=== PATIENT | male | born 1985 | race Hispanic/Latino ===

== ENCOUNTER 2024-06-06 06:49 | Emergency (ER) | payer BC ==
[~2024-06-06] VITALS: Ht 182.9 cm; Wt 113.4 kg
[2024-06-06 06:52] VITALS: BP 164/88; PULSE 82; RESP 16
== END 2024-06-06 07:40 | disposition left against medical advice (07) ==
LOC: EDH 06:49
DX: R05.9 Cough, unspecified (principal); Z53.21 Procedure and treatment not carried out due to patient leaving prior to being seen by health care provider

== ENCOUNTER 2025-03-23 14:53 | Emergency (ER) | payer SELFPAY ==
[~2025-03-23] VITALS: Ht 182.9 cm; Wt 117.9 kg
--- NOTE | 2025-03-23 16:08 | ERN ---
General Chief Complaint: Cough Stated Complaint: COUGH, CONGESTION X 3 MONTHS Time Seen by MD: 15:01 Source: patient History of Present Illness Initial Comments PATIENT IS A 39-YEAR-OLD MALE COMING IN COMPLAINING OF COUGH AND CONGESTION FOR SEVERAL MONTHS. 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 HE STATES THAT HE HAS BEEN EVALUATED MULTIPLE TIMES AND HAS BEEN FOUND TO HAVE MULTIPLE "LUNG INFECTIONS". HE ALSO STATES THAT HE HAS BEEN PLACED ON ANTIBIOTICS ON THREE SEPARATE OCCASIONS FOR THE SAME REASON. STATES THAT INITIALLY WITH THE ANTIBIOTICS HE DOES FEEL SOME RELIEF BUT THEN STARTED TO HAVE THE EPISODES OF COUGH AND SHORTNESS OF BREATH. HE STATES THAT HE WAS PLACED ON MEDICATION FOR ASTHMA WELL. HE ATTRIBUTES SOME OF THESE FINDINGS TO HIS ENVIRONMENT AND STATES THAT AT TIMES HE DOES FEEL BETTER AWAY FROM HIS HOUSE. Allergies: Coded Allergies: No Known Allergies (Unverified Allergy, Unknown, 06/06/24) Past Medical History Past Medical History: Hypertension Past Surgical History: None ROS Dictation CONSTITUTIONAL: NO CHILLS, NO FEVER, NO WEAKNESS, NO DIAPHORESIS, NO MALAISE. HEAD/FACE: NO SIGNS OF TRAUMA. EENT: NO EYE PAIN, NO BLURRED VISION, NO TEARING, NO DOUBLE VISION, NO EAR PAIN, NO EAR DISCHARGE, NO NOSE PAIN, NO NASAL CONGESTION, NO THROAT PAIN, NO THROAT SWELLING, NO MOUTH PAIN. RESPIRATORY: NO COUGH, NO ORTHOPNEA, NO SOB, NO STRIDOR, NO WHEEZING. CARDIOVASCULAR: NO CHEST PAIN, NO EDEMA, NO PALPITATIONS, NO SYNCOPE. GASTROINTESTINAL/ABDOMINAL: NO ABDOMINAL PAIN, NO CONSTIPATION, NO DIARRHEA, NO NAUSEA, NO VOMITING. GENITOURINARY: NO ABNORMAL DISCHARGE, NO DYSURIA, NO FREQUENT URINATION, NO HEMATURIA. NO COMPLAINTS OF PAIN IN THE GENITALS. MUSCULOSKELETAL: NO BACK PAIN, NO GOUT, NO JOINT PAIN, NO JOINT SWELLING, NO MUSCLE PAIN, NO MUSCLE STIFFNESS, NO NECK PAIN. INTEGUMENTARY: NO CHANGE IN COLOR, NO CHANGE IN HAIR/NAILS, NO DRYNESS, NO LESION, NO LUMPS, NO RASH. NEUROLOGICAL/PSYCH: NO ANXIETY, NOT DEPRESSED, NO EMOTIONAL PROBLEM, NO HEADACHE, NO NUMBNESS, NO PRE-EXISTING DEFICIT, NO HISTORY OF SEIZURES, NO TREMORS, NO WEAKNESS. HEMATOLOGIC/LYMPHATIC: NOT ANEMIC, NO HISTORY OF BLOOD CLOTS, NO APPARENT BLEEDING, NO BRUISING, GLANDS NOT SWOLLEN. ALL SYSTEMS NEGATIVE, EXCEPT NOTED. Physical Exam Physical Exam Dictation VITAL SIGNS: REVIEWED. GENERAL APPEARANCE: ALERT, ORIENTED X3, NO ACUTE DISTRESS, OBESE. HEAD AND FACE: NON-TRAUMATIC. EYES: PERRL, PINK CONJUNCTIVAS, EYELID NO TRAUMA, ANTERIOR CHAMBER CLEAR. EARS: PINNAS INTACT AND NO SIGNS OF TRAUMA OR ERYTHEMA. EAR CANALS CLEAR AND NO DISCHARGE. TMS NO ERYTHEMA. NOSE: NO DISCHARGE, NO BLEEDING. OROPHARYNX: MOUTH NORMAL, TEETH NO CARIES, TONGUE PINK. PHARYNX CLEAR, NO ERYTHEMA. TONSILS NO EXUDATES, NO ABSCESSES NOTED. MUCOUS MEMBRANE MOIST. NECK: SUPPLE, NON-TENDER, NO THYROMEGALY, NO MASSES, NO JVD, NO BRUITS. BREAST: DEFERRED. CHEST: NO TENDERNESS, NO CREPITUS, NO PARADOXICAL MOVEMENT, NO RETRACTIONS. LUNGS: CLEAR, WELL-VENTILATED, SYMMETRIC, NO RALES, NO WHEEZING, NO RHONCHI, NO STRIDOR, GOOD BREATH SOUNDS BILATERALLY. HEART: REGULAR RATE, REGULAR RHYTHM, NO MURMUR, NO GALLOPS. VASCULAR: NO PERIPHERAL EDEMA. ABDOMEN: SOFT, POSITIVE BOWEL SOUNDS, NONDISTENDED, NO GUARDING, NONTENDER, NO REBOUND, NO MASSES NO HEPATOMEGALY, NO SPLENOMEGALY, NO SHAFER'S SIGN, NO HERNIAS. RECTAL: DEFERRED. GENITAL: DEFERRED. NEUROLOGICAL: NORMAL SPEECH, GROSS MOTOR FUNCTION INTACT, GROSS SENSORY FUNCTION INTACT. MUSCULOSKELETAL: NECK NONTENDER, FULL RANGE OF MOTION, BACK NONTENDER, FULL RANGE OF MOTION. EXTREMITIES: NONTENDER, FULL RANGE OF MOTION. SKIN: COLOR PINK, DRY, NO TURGOR, NO RASH, NO LACERATIONS, NO ABRASIONS, NO CONTUSIONS. LYMPHATICS: DEFERRED. Results Laboratory and Microbiology Lab and Micro Result Laboratory Tests Test 03/23/25 15:23 White Blood Count 11.2 K/uL (4.8-10.8) H Red Blood Count 5.27 MIL/uL (4.50-6.20) Hemoglobin 16.4 g/dL (14.0-18.0) Hematocrit 49.3 % (42-54) Mean Corpuscular Volume 93.5 fL (79-99) Mean Corpuscular Hemoglobin 31.1 pg (27.0-33.0) Mean Corpuscular Hemoglobin Concent 33.3 g/dL (32.0-36.0) Red Cell Distribution Width 12.8 % (11.0-15.5) Platelet Count 261 K/uL (130-400) Mean Platelet Volume 10.2 fL (7.5-10.5) Immature Granulocyte % (Auto) 0.8 % (0-1) Neutrophils (%) (Auto) 66.9 % (40.0-77.0) Lymphocytes (%) (Auto) 24.3 % (21.0-51.0) Monocytes (%) (Auto) 6.1 % (3.0-13.0) Eosinophils (%) (Auto) 1.3 % (0.0-8.0) Basophils (%) (Auto) 0.6 % (0.0-5.0) Neutrophils # (Auto) 7.5 K/uL (1.8-7.7) Lymphocytes # (Auto) 2.7 K/uL (1.0-4.8) Monocytes # (Auto) 0.7 K/uL (0.1-1.0) Eosinophils # (Auto) 0.15 K/uL (0.00-0.70) Basophils # (Auto) 0.07 K/uL (0.00-0.20) Absolute Immature Granulocyte (auto 0.09 K/uL (0-1) Nucleated Red Blood Cells 0.0 % (0.0-0.19) Sodium Level 138 mmol/L (136-145) Potassium Level 3.7 mmol/L (3.5-5.1) Chloride Level 100 mmol/L (101-111) L Carbon Dioxide Level 31 mmol/L (21-32) Blood Urea Nitrogen 11 mg/dL (7-18) Creatinine 0.8 mg/dL (0.5-1.3) Glomerular Filtration Rate Calc 117 mL/min (>90) Random Glucose 111 mg/dL (70-105) H Total Calcium 9.0 mg/dL (8.5-10.1) Total Creatine Kinase 88 U/L (21-232) Troponin I High Sensitivity 18 ng/L (4-75) B-Type Natriuretic Peptide 5 pg/mL (0-100) Labs Reviewed?: Yes EKG/XRAY/US/CT/MRI EKG Comment 03/15/2025 TIME 3:44 P.M. VENTRICULAR RATE 61 SINUS RHYTHM [place] [address] WAVE ELEVATION OR DEPRESSION X-RAY Comment [place] [id number] [id number] IMAGING REPORT Signed PATIENT: LAUREN RICO MR#: [id number] : 1985 SEX: M AGE: 39 LOCATION: ED ORDER [id number] STATUS: REG ER REPORT#: [id number] SERVICE 1536 REASON: CP ORDERING PHYSICIAN: YAW ISLAS MD PROCEDURE: CXR1VW - CHEST 1VW CHEST 1VW HISTORY: Chest pain COMPARISON: None FINDINGS: A frontal projection of the chest was obtained. Prominent bilateral pulmonary infiltrates are seen. The heart is borderline enlarged. Degenerative changes are seen. No evidence of aortic calcification is seen. IMPRESSION: 1. Mild bilateral pulmonary infiltrates. DICTATED BY: LAVON RAM MD DATE: 03/23/251656 ELECTRONICALLY SIGNED BY: LAVON RAM MD DATE: 03/23/[address] Scan Comment [place] [address] [id number] IMAGING REPORT Signed PATIENT: LAUREN RICO MR#: [id number] : 1985 SEX: M AGE: 39 LOCATION: ED ORDER 170 STATUS: REG ER REPORT#: [id number] SERVICE 170 REASON: ABNORMAL XRAY ORDERING PHYSICIAN: YAW ISLAS MD PROCEDURE: CHEST WO - CT CHEST W/O CONTRAST CT CHEST WITHOUT CONTRAST INDICATION: Abnormal chest radiograph TECHNIQUE: Routine axial images using 5 mm slice thickness were acquired from the lung apices to the bases without the administration of IV contrast.Coronal and sagittal reformatted images acquired for interpretation. CT was performed with one or more of the following dose reduction techniques: Automated exposure control, adjustment of the mA and/or kV according to patient size, or use of iterative reconstruction technique. COMPARISON: 03/23/2025 chest radiograph FINDINGS: The heart size is normal. No pericardial effusion noted. The visualized great vessels and thoracic aorta are within normal limits. The trachea and airways are patent. No evidence for pulmonary nodule, consolidation, cavitary lesion, or other abnormal pulmonary parenchymal opacity. No axillary, hilar, or mediastinal lymphadenopathy. No pleural effusion or pneumothorax identified. Limited views of the upper abdomen appear normal. Visible osseous structures are intact. IMPRESSION: No evidence for any acute cardiopulmonary process. DICTATED BY: SOL BAXTER MD DATE: 03/23/251752 ELECTRONICALLY SIGNED BY: SOL BAXTER MD DATE: 03/23/251755 MDM MDM: DIFFERENTIAL DIAGNOSIS: CHRONIC BRONCHITIS, URI, ASTHMA RATIONALE: TESTS CONSIDERED AND ORDERED SECONDARY TO SHARED DECISION MAKING INCLUDE: PREVIOUS OUTSIDE RECORDS REVIEWED: OLD ER VISITS. RISK OF COMPLICATION AND/OR MORBIDITY OR MORTALITY OF PATIENT MANAGEMENT: NONE MEDICATIONS-PER MEDICATION RECONCILIATION PATIENT WAS 39-YEAR-OLD MALE COMING IN COMPLAINING OF COUGH AND CONGESTION. HE WAS RECENTLY DIAGNOSED WITH A ASTHMA. PATIENT HAS BEEN ON ANTIBIOTICS ON THREE SEPARATE OCCASIONS FOR THE SAME REASON. HE WAS TOLD THAT HE HAS A INFECTION IN THE LUNGS THAT ON WHY HE HAD NEEDED TO BE ON ANTIBIOTICS IN THREE SEPARATE OCCASIONS. HE ALSO STATES HE HAS BEEN EXPOSED TO ENVIRONMENTAL CONTAMINANTS WHICH HAVE CAUSED HIM TO HAVE INCREASED URI ATTACKS. ED Course Orders Procedure Category Date Status Time Cbc With Differential LAB 03/23/25 Complete 15:21 Prothrombin Time With LAB 03/23/25 In Process INR 15:36 B-Type Natriuretic LAB 03/23/25 Complete Peptide 15:36 Chest 1vw RAD 03/23/25 Resulted 15:36 12 Lead Ekg Tracing- EKG 03/23/25 Logged Technical 15:36 Lactated Ringers PHA 03/23/25 Complete 1000ml (Lactated 16:00 Creatine Kinase, Total LAB 03/23/25 Complete 15:36 Troponin I High LAB 03/23/25 Complete Sensitivity 15:36 Urinalysis Profile LAB 03/23/25 Logged 15:36 Partial LAB 03/23/25 In Process Thromboplastin Time 15:36 Basic Metabolic Panel LAB 03/23/25 Complete 15:36 Ondansetron 4mg Inj PHA 03/23/25 Complete (Zofran 4mg Inj) 16:00 Lidocaine Hcl 2% PHA 03/23/25 Complete Viscous (Lidocaine Hcl 16:00 Mag/Alum/Simeth 30ml PHA 03/23/25 Complete (Maalox Plus 30ml) 16:00 Pantoprazole 40mg Inj PHA 03/23/25 Complete (Protonix 40mg Inj 16:00 Ct Chest W/O Contrast CT 03/23/25 Resulted 17:03 Current Medications Medications (Trade) Dose Ordered Sig/Moises Route PRN Reason Start Time Stop Time Status Last Admin Dose Admin Al Hydroxide/Mg Hydroxide (MAALox PLUS 30ML) 30 ml ONCE ONCE PO 03/23/25 16:00 03/23/25 16:03 DC 03/23/25 16:11 Lactated Ringer's 1,000 ml @ 0 mls/hr ONCE ONCE IV 03/23/25 16:00 03/23/25 16:02 DC 03/23/25 16:11 Lidocaine HCl (Lidocaine HCl 2% Viscous) 10 ml ONCE ONCE PO 03/23/25 16:00 03/23/25 16:03 DC 03/23/25 16:10 Ondansetron HCl (zoFRAN 4MG INJ) 4 mg ONCE ONCE IVP 03/23/25 16:00 03/23/25 16:03 DC 03/23/25 16:10 Pantoprazole Sodium (PROTonix 40MG INJ) 40 mg ONCE ONCE IVP 03/23/25 16:00 03/23/25 16:03 DC 03/23/25 16:10 Vital Signs Date Time Temp Pulse Resp B/P (MAP) Pulse Ox O2 Delivery O2 Flow Rate FiO2 03/23/25 15:49 98.4 75 16 150/95 98 Room Air* 0 21 03/23/25 14:56 98.4 77 16 151/98 96 Room Air 0 DX & DISP Disposition: Discharge Departure Impression: Primary Impression: Chronic bronchitis Condition: Stable Referrals: SELF,REFERRAL (PCP) FEDERICO NIELSEN MD, LUIS A MD Time of Disposition: 18:04 YAW ISLAS MD Mar 23, 2025 16:08
[2025-03-23] MEDS: PANTOPrazole 40 MG/VIAL IVP ONE (16:10)
[2025-03-23] MEDS: LIDOCAINE HCL 2% VISCOUS 15 ML UDCUP PO ONE (16:10)
[2025-03-23] MEDS: ondanSETRON 4MG INJ IVP ONE (16:10)
[2025-03-23] MEDS: LACTATED RINGERS 1000ML 1,000 ML IV ONE (16:11)
[2025-03-23] MEDS: MAG/ALUM/SIMETH 30 ML UDCUP PO ONE (16:11)
[2025-03-23 16:37] LABS: BASOPHILS # (AUTO) 0.07 K/uL (0.00-0.20); BASOPHILS % (AUTO) 0.6 % (0.0-5.0); EOSINOPHILS # (AUTO) 0.15 K/uL (0.00-0.70); EOSINOPHILS % (AUTO) 1.3 % (0.0-8.0); HEMATOCRIT 49.3 % (42-54); IMMATURE GRANULOCYTE ABSOLUTE 0.09 K/uL (0-1); LYMPHOCYTES # (AUTO) 2.7 K/uL (1.0-4.8); LYMPHOCYTES % (AUTO) 24.3 % (21.0-51.0); MEAN CORPUSCULAR HEMOGLOBIN 31.1 pg (27.0-33.0); MEAN CORPUSCULAR HGB CONC 33.3 g/dL (32.0-36.0); MEAN CORPUSCULAR VOLUME 93.5 fL (79-99); MONOCYTES # (AUTO) 0.7 K/uL (0.1-1.0); MONOCYTES % (AUTO) 6.1 % (3.0-13.0); NEUTROPHILS # (AUTO) 7.5 K/uL (1.8-7.7); NEUTROPHILS % (AUTO) 66.9 % (40.0-77.0); PLATELET COUNT (AUTO) 261 K/uL (130-400); RED BLOOD CELL COUNT(AUTO) 5.27 MIL/uL (4.50-6.20); RED CELL DISTRIBUTION WIDTH 12.8 % (11.0-15.5); WHITE BLOOD COUNT (AUTO) 11.2 K/uL (4.8-10.8)
[2025-03-23 16:40] LABS: CREATININE 0.8 mg/dL (0.5-1.3); POTASSIUM 3.7 mmol/L (3.5-5.1)
--- NOTE | 2025-03-23 17:01 | HMCIMG ---
CHEST 1VW HISTORY: Chest pain COMPARISON: None FINDINGS: A frontal projection of the chest was obtained. Prominent bilateral pulmonary infiltrates are seen. The heart is borderline enlarged. Degenerative changes are seen. No evidence of aortic calcification is seen. IMPRESSION: 1. Mild bilateral pulmonary infiltrates.
--- NOTE | 2025-03-23 17:56 | HMCIMG ---
CT CHEST WITHOUT CONTRAST INDICATION: Abnormal chest radiograph TECHNIQUE: Routine axial images using 5 mm slice thickness were acquired from the lung apices to the bases without the administration of IV contrast.Coronal and sagittal reformatted images acquired for interpretation. CT was performed with one or more of the following dose reduction techniques: Automated exposure control, adjustment of the mA and/or kV according to patient size, or use of iterative reconstruction technique. COMPARISON: 03/23/2025 chest radiograph FINDINGS: The heart size is normal. No pericardial effusion noted. The visualized great vessels and thoracic aorta are within normal limits. The trachea and airways are patent. No evidence for pulmonary nodule, consolidation, cavitary lesion, or other abnormal pulmonary parenchymal opacity. No axillary, hilar, or mediastinal lymphadenopathy. No pleural effusion or pneumothorax identified. Limited views of the upper abdomen appear normal. Visible osseous structures are intact. IMPRESSION: No evidence for any acute cardiopulmonary process.
[2025-03-23 18:05] LABS: INR 0.99 (0.85-1.15); PROTHROMBIN TIME 10.5 SEC (9.6-11.6)
[2025-03-23 18:06] LABS: PARTIAL THROMBOPLASTIN TIME 28.3 SEC (26.3-35.5)
[2025-03-23 18:20] VITALS: BP 148/90; PULSE 75; RESP 16; TEMP 98.4; O2SAT 98
--- NOTE | 2025-03-24 07:38 | EKG ---
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
== END 2025-03-23 18:28 | disposition home or self-care (01) ==
LOC: EDH 14:53
DX: J42 Unspecified chronic bronchitis (principal); I10 Essential (primary) hypertension
CPT/HCPCS: 99285; 96374; 71250; 71045; 96375; 82550; 84484; 80048; 83880; 85025; 85610; 85730; 36415; 93005; J7120; J2405; J2470

== ENCOUNTER 2025-03-29 19:16 | Emergency (ER) | payer BC ==
--- NOTE | 2025-03-29 20:21 | NUR ---
PATIENT STATES WILL COME BACK IF NEEDED, DECIDED TO LEAVE WITH MOTHER.
--- NOTE | 2025-03-29 20:29 | ERN ---
General Stated Complaint: SOB Time Seen by MD: 19:21 Source: patient History of Present Illness Initial Comments 39-year-old male with complaints of malaise and lightheadedness. He thinks he has some sort of unspecified asthma based on what his primary care physician has told him. He has used all of his different inhalers today and they have not helped him at all. Be still feels lightheaded and weak. Chills in the morning no fever. No associated GI problems. He has been taking azithromycin for three days and still does not feel better. He was seen here at this hospital five days ago with similar complaints and chest x-ray is and chest CT scan showed normal lung parenchyma. Allergies: Coded Allergies: No Known Allergies (Unverified Allergy, Unknown, 06/06/24) Past Medical History Past Medical History: Hypertension Medical History Other: Possible asthma. Past Surgical History: None Constitutional: (+) chills EENTM: (-) eye pain, (-) blurred vision, (-) tearing, (-) double vision, (-) ear pain, (-) ear discharge, (-) nose pain, (-) nose congestion, (-) throat pain, (-) Throat swelling, (-) mouth pain, (-) tooth pain, (-) mouth swelling, (-) other documentation Respiratory: (-) cough, (-) orthopnea, (-) short of breath, (-) stridor, (-) wheezing, (-) other documentation Cardiovascular: (-) chest pain, (-) edema, (-) palpitations, (-) syncope, (-) dyspnea on exertion, (-) other documentation Gastrointestinal/Abdominal: (-) nausea, (-) vomiting, (-) diarrhea, (-) abdominal pain, (-) abdominal distention, (-) constipation, (-) rectal bleeding, (-) dark stool/melena, (-) other documentation Musculoskeletal: (-) Neck pain, (-) back pain, (-) Flank Pain, (-) joint pain, (-) joint swelling, (-) muscle pain, (-) muscle stiffness, (-) gout, (-) other documentation Skin: (-) laceration, (-) contusion, (-) abrasion, (-) abscess, (-) rash, (-) change in color, (-) change in hair, (-) change in nails, (-) diaphoresis, (-) dryness, (-) other documentation Neuro: (-) altered mental status, (-) headache, (-) syncope, (-) paralysis, (-) numbness, (-) seizure, (-) pre-existing deficit, (-) tremors, (-) weakness, (-) dizziness, (-) slurred speech, (-) vertigo, (-) other documentation Physical Exam General Appearance: (+) no apparent distress Orientation: (+) alert, (+) oriented x 3 Head/Face Trauma: No Eye: bilateral eye normal inspection, bilateral eye PERRL, bilateral eye EOMI Ear, Nose, Throat: (+) hearing grossly normal, (+) normal ENT inspection, (+) moist mucous membraine Neck: (+) normal inspection, (+) supple, (+) full range of motion Respiratory: (+) chest non-tender, (+) lungs clear, (+) well ventilated Heart: (+) regular, (+) no gallop Vascular: (+) no edema, (+) normal peripheral pulse Gastrointestinal: (+) soft, (+) non-tender, (+) bowel sound present MDM Patient coming in with vague symptoms of weakness lightheadedness and concern of an asthma exacerbation. He has been taking azithromycin for three days because of a concern for an upper respiratory tract infection. He was seen here five days ago with similar complaints and a CT scan of his chest was negative. He was not swabbed for any viral infections. His pharynx may be inflamed. I will just start with a CBC chest x-ray and nasal swabs. The patient maybe feeling under the weather because of an upper respiratory tract infection that is viral. I will give him some fluid to help with his lightheadedness as well. DX & DISP Disposition: Discharge Departure Impression: Primary Impression: Chronic bronchitis Condition: Against Medical Advice Referrals: SELF,REFERRAL (PCP) LEON KUMAR MD March 29, 2025 20:29
== END 2025-03-29 20:23 | disposition left against medical advice (07) ==
LOC: EDH 19:16 → EEVIPCON 19:16 → EDH 20:23
DX: J42 Unspecified chronic bronchitis (principal); I10 Essential (primary) hypertension; Z79.2 Long term (current) use of antibiotics
CPT/HCPCS: 99281

== ENCOUNTER 2025-07-23 12:40 | Emergency (ER) | payer BC ==
[~2025-07-23] VITALS: Ht 182.9 cm; Wt 98.0 kg
[2025-07-23] MEDS ORDERED: BUDESONIDE 0.5 MG/2 ML INH IH STA (12:45)
--- NOTE | 2025-07-23 12:48 | ERN ---
ED Note History of Present Illness Stated Complaint: SOB Chief Complaint: Shortness of Breath Time Seen by MD: 12:45 Dictation: PATIENT IS A 39-YEAR-OLD ASTHMATIC MALE COMING IN TODAY WITH COMPLAINTS OF SHORTNESS A BREATH WITH DYSPNEA HE HAS HAD FOR THE LAST 3-4 DAYS. NO FEVER NO CHILLS NO NAUSEA VOMITING. NO LOSS OF TASTE OR SMELL. HE STATES HE SEES A DIRECTOR MEDIA'S OUT OF [facility] IN HIS HAD PULMONARY FUNCTION TESTING DONE. STATES HE SAW HIS PRIMARY CARE DOCTOR LAST WEEK WHO GAVE HIM SOME PREDNISONE AND HE HAS BEEN USING HIS TRILOGY HOWEVER HAS NOT HAD RELIEF. NO CHEST PAIN NO BACK PAIN NO EDEMA. STATES HE ALSO FEELS DIZZY. Allergies: Coded Allergies: No Known Allergies (Unverified Allergy, Unknown, 06/06/24) Past Medical History Past Medical History: Asthma, Hypertension Additional Past Medical Hx: Possible asthma. Surgical History: None RN Note Reviewed/Agreed w/PFSH: Yes Review of System Dictation CONSTITUTIONAL: NEGATIVE EXCEPT FOR HPI HEAD/FACE: NEGATIVE EXCEPT FOR HPI EENT: NEGATIVE EXCEPT FOR HPI RESPIRATORY: NEGATIVE EXCEPT FOR HPI SOB GASTROINTESTINAL/ABDOMINAL: NEGATIVE EXCEPT FOR HPI GENITOURINARY: NEGATIVE EXCEPT FOR HPI MUSCULOSKELETAL: NEGATIVE EXCEPT FOR HPI INTEGUMENTARY: NEGATIVE EXCEPT FOR HPI NEUROLOGICAL/PSYCH: NEGATIVE EXCEPT FOR HPI HEMATOLOGIC/LYMPHATIC: NEGATIVE EXCEPT FOR HPI ALL SYSTEMS NEGATIVE, EXCEPT NOTED ABOVE. 13 POINT REVIEW OF SYSTEMS ASSESSED AND ALL NEGATIVE EXCEPT FOR ABOVE. Initial Vital Sign VS Vital Signs Date Time Temp Pulse Resp B/P (MAP) Pulse Ox O2 Delivery O2 Flow Rate FiO2 07/23/25 12:42 98.1 87 20 133/96 98 Room Air 0 07/23/25 12:46 21 Physical Exam Dictation VITAL SIGNS REVIEWED GENERAL APPEARANCE: ALERT, ORIENTED X 3, MILD ACUTE DISTRESS, WELL DEVELOPED, NOURISHED. HEAD AND FACE: NON-TRAUMATIC. EYES: PERRL, PINK CONJUNCTIVAS, EYELID NO TRAUMA, ANTERIOR CHAMBER WITH ARCUS SENILIS. EARS: PINNAS INTACT AND NO SIGNS OF TRAUMA OR ERYTHEMA EAR CANALS CLEAR AND NO DISCHARGE TM NO ERYTHEMA NOSE: NO DISCHARGE, NO BLEEDING. OROPHARYNX: MOUTH NORMAL, TONGUE PINK, PHARYNX CLEAR,NO ERYTHEMA, TONSILS NO EXUDATES, NO ABSCESSES NOTED, MUCOUS MEMBRANE MOIST NECK: SUPPLE, NON-TENDER, NO THYROMEGALY, NO MASSES, NO JVD, NO BRUITS BREAST:DEFERRED CHEST:NO TENDERNESS, NO CREPITUS, NO PARADOXICAL MOVEMENT, NO RETRACTIONS LUNGS:CLEAR, WELL-VENTILATED, SYMMETRIC, NO RALES, NO WHEEZING, NO RHONCHI, NO STRIDOR, GOOD BREATH SOUNDS BILATERALLY NO WHEEZING NO TACHYPNEA NO RETRACTIONS HEART: REGULAR RATE, REGULAR RHYTHM, NO MURMUR, NO GALLOPS VASCULAR: NO PERIPHERAL EDEMA, ABDOMEN: SOFT, POSITIVE BOWEL SOUNDS, NONDISTENDED, NO GUARDING, NONTENDER, NO REBOUND, NO MASSES NO HEPATOMEGALY, NO SPLENOMEGALY, NO SHAFER'S SIGN, NO HERNIAS. RECTAL: DEFERRED GENITAL: DEFERRED NEUROLOGICAL: NORMAL SPEECH, MOTOR FUNCTION INTACT, SENSORY FUNCTION INTACT MUSCULOSKELETAL: NECK NONTENDER, FULL RANGE OF MOTION, BACK NONTENDER, FULL RANGE OF MOTION, EXTREMITIES: NONTENDER, FULL RANGE OF MOTION SKIN: COLOR PINK, DRY, NO TURGOR, NO RASH, NO LACERATIONS, NO ABRASIONS, NO CONTUSIONS. LYMPHATIC: DEFERRED Results (Laboratory/Radiology) Labs Reviewed?: Yes EKG Comment: EKG SINUS RHYTHM/HEART RATE 80/AXIS NORMAL/EARLY REPOLARIZATION IN LATERAL LEADS ED Course ED Course Orders Procedure Category Date Status Time Chest 1vw RAD 07/23/25 Logged 12:45 12 Lead Ekg Tracing- EKG 07/23/25 Resulted Technical 12:45 Dexamethasone 4mg/Ml PHA 07/23/25 Complete 1ml Vial (Dexametha 13:00 Albuterol 0.083% PHA 07/23/25 Complete 2.5mg/3ml (Proventil 13:00 Budesonide 0.5 Mg/2 PHA 07/23/25 Complete Ml Inh (Pulmicort 0. 12:45 Current Medications Medications (Trade) Dose Ordered Sig/Moises Route PRN Reason Start Time Stop Time Status Last Admin Dose Admin Albuterol Sulfate (Proventil 0.083% 2.5mg/3ml) 5 mg ONCE ONCE IH 07/23/25 13:00 07/23/25 13:01 DC Budesonide (Pulmicort 0.5 Mg/2ml) 0.5 mg ONCE STAT IH 07/23/25 12:45 07/23/25 12:49 DC Dexamethasone Sodium Phosphate (dexaMETHasone 4MG/ML 1ML VIAL) 8 mg ONCE ONCE IVP 07/23/25 13:00 07/23/25 13:01 DC Vital Signs Date Time Temp Pulse Resp B/P (MAP) Pulse Ox O2 Delivery O2 Flow Rate FiO2 07/23/25 13:47 98.1 87 20 133/98 98 Room Air* 0 07/23/25 12:46 98.1 97 20 133/96 98 Room Air* 0 07/23/25 12:42 98.1 87 20 133/96 98 Room Air 0 Medical Decision Making MDM 1405/PATIENT FOUND LEFT THE WAITING ROOM AGAINST MEDICAL ADVICE. DX & DISP Disposition: AMA Decision to Admit Time: 14:07 Departure Impression: Primary Impression: Shortness of breath Condition: Stable Referrals: GABBY JO (PCP) Time of Disposition: 14:07 I have reviewed the case, and I agree with, Diagnosis and Plan ALE MEHTA CRUMB PACKER Jul 23, 2025 12:48
--- NOTE | 2025-07-23 12:52 | EKG ---
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
[2025-07-23] MEDS ORDERED: ALBUTEROL 0.083% 2.5 MG/3 ML INH IH ONE (13:00)
[2025-07-23 13:47] VITALS: BP 133/98; PULSE 87; RESP 20; TEMP 98.1; O2SAT 98
== END 2025-07-23 14:15 | disposition home or self-care (01) ==
LOC: EDH 12:40
DX: R06.02 Shortness of breath (principal); J45.909 Unspecified asthma, uncomplicated; I10 Essential (primary) hypertension; Z79.51 Long term (current) use of inhaled steroids
CPT/HCPCS: 93005; 99284